=== PATIENT | female | born 2000 | race Two or more races ===

== ENCOUNTER 2024-06-03 09:42 | Observation (INO) | payer OTHER ==
[2024-06-03] MEDS ORDERED: PREN-96 PO ×2 (10:16)
== END 2024-06-03 11:53 | disposition home or self-care (01) ==
LOC: LDRP 09:42
PROVIDERS: ADMIT Obstetrics & Gynecology; ATTEND Obstetrics & Gynecology
DX: O69.81X0 Labor and delivery complicated by cord around neck, without compression, not applicable or unspecified (principal); Z3A.38 38 weeks gestation of pregnancy
CPT/HCPCS: 59025; 76818; 81002; 94760; G0378

== ENCOUNTER 2024-06-05 08:52 | Observation (INO) | payer OTHER ==
[~2024-06-05 08:52] MED LIST: PREN-96 PO
== END 2024-06-05 11:02 | disposition home or self-care (01) ==
LOC: LDRP 08:52
PROVIDERS: ADMIT Obstetrics & Gynecology; ATTEND Obstetrics & Gynecology
DX: O42.913 Preterm premature rupture of membranes, unspecified as to length of time between rupture and onset of labor, third trimester (principal); O69.81X0 Labor and delivery complicated by cord around neck, without compression, not applicable or unspecified; Z3A.39 39 weeks gestation of pregnancy; Z79.899 Other long term (current) drug therapy
CPT/HCPCS: 59025; 76818; 81002; G0378

== ENCOUNTER 2024-06-14 13:57 | Observation (INO) | payer OTHER | END 2024-06-14 16:15 | disposition home or self-care (01) | LOC: UNDOADMOB 13:57 → LDRP 13:57 → UNDODISOB 16:15 | PROVIDERS: ADMIT Obstetrics & Gynecology; ATTEND Obstetrics & Gynecology | DX: O48.0 Post-term pregnancy (principal); Z3A.40 40 weeks gestation of pregnancy; Z79.899 Other long term (current) drug therapy | CPT/HCPCS: 59025; 76818; 81002; 94762; G0378 ==

== ENCOUNTER 2024-06-15 05:48 | Inpatient (IN) | payer OTHER ==
[~2024-06-15] VITALS: Ht 157.5 cm; Wt 92.1 kg
[2024-06-15] MEDS ORDERED: LIDOCAINE 2%HCL (LOCAL ANESTH.) INJ 20ML MDV IJ PRN (07:15)
[2024-06-15] MEDS ORDERED: miSOPROStol 50 MCG per PRE-CUT 1/2 TAB PO PRN (07:15)
[2024-06-15 07:45] LABS: Basophils # (auto) 0 10 ^3/uL (0-0.2); Basophils % (auto) 0.5 % (0.0-2.0); Eosinophils # (auto) 0.4 10 ^3/uL (0-0.8); Eosinophils % (auto) 3.6 % (0.0-7.0); Hematocrit 37.2 % (36.0-46.0); Hemoglobin 13.3 g/dL (12.2-16.2); Lymphocytes # (auto) 2.4 10 ^3/uL (0.4-5.4); Lymphocytes % (auto) 23.2 % (10.0-50.0); Mean Corpuscular Hemoglobin 29.9 pg (28.0-32.0); Mean Corpuscular Hgb Conc. 35.7 g/dL (32.0-36.0); Mean Corpuscular Volume 83.9 fL (80.0-100.0); Monocytes # (auto) 0.8 10 ^3/uL (0-1.3); Monocytes % (auto) 7.8 % (0.0-12.0); Neutrophils # (auto) 6.6 10 ^3/uL (1.6-8.6); Neutrophils % (auto) 64.9 % (37.0-80.0); Nucleated Red Blood Cells % 0.2 %; Platelet Count (auto) 246 10^3/uL (140-450); Red Blood Cells 4.44 10^6/uL (4.0-5.20); Red Cell Distribution Width 13.8 % (11.8-14.3); White Blood Cell 10.2 10^3/uL (4.4-10.8)
[2024-06-15 08:03] LABS: INR 0.97 (0.9-1.15); Partial Thromboplastin Time 26.2 SEC (24.5-34.5); Prothrombin Time 10.3 sec (9.3-11.8)
[2024-06-15 08:09] LABS: Urine Bacteria FEW /hpf (None Seen); Urine Blood 2+ /uL (Negative); Urine Clarity Clear (Clear); Urine Color Colorless (Yellow); Urine Protein, UAD Negative (Negative); Urine Specific Gravity 1.006 (1.001-1.035); Urine Urobilinogen Normal (Negative); Urine WBC 21 /hpf (0 - 5); Urine pH 6.5 (5.0-9.0)
[2024-06-15] MEDS ORDERED: LACTATED RINGER'S 1,000 ML IV SCH (08:15)
[2024-06-15] MEDS ORDERED: TERBUTALINE SULFATE 1 MG/ML 1ML VIAL SC PRN (08:15)
[2024-06-15 08:20] LABS: Amphetamine Screen, Urine Neg (NEGATIVE)
[2024-06-15 08:20] LABS: Alanine Aminotransferase 12 U/L (7-40); Alkaline Phosphatase 142 U/L (46-116); Anion Gap 10 (5-15); Aspartate Aminotransferase 16 U/L (13-40); BUN/Creatinine Ratio 12.3 (10.0-20.0); Bilirubin, Total 0.3 mg/dL (0.2-1.0); Blood Urea Nitrogen 8 mg/dL (9-23); Calcium 10.2 mg/dL (8.7-10.4); Carbon Dioxide 22 mmol/L (20-30); Chloride 105 mmol/L (98-107); Glucose 91 mg/dL (74-106); Potassium 3.8 mmol/L (3.5-5.1); Sodium 137 mmol/L (136-145); Total Protein 6.7 g/dL (5.7-8.2)
[2024-06-15 08:21] LABS: Benzodiazephine Screen, Urine Neg (NEGATIVE)
[2024-06-15 08:22] LABS: Barbiturate Scree,Urine Neg (NEGATIVE); Cannabinoid Screen, Urine Neg (NEGATIVE); Cocaine Screen, Urine Neg (NEGATIVE); Opiate Scree,Urine Neg (NEGATIVE); Phencyclidine Screen, Urine Neg (NEGATIVE)
[2024-06-15] MEDS: LACTATED RINGER'S 1,000 ML IV SCH (08:35)
[2024-06-15] MEDS: DERMOPLAST 60ML BOTTLE TOP PRN (08:36)
[2024-06-15] MEDS: WITCH HAZEL-GLYCERIN PAD TOP PRN (08:36)
[2024-06-15] MEDS: PHISODERM TOP SOLN 240ML BTL TOP PRN (08:36)
[2024-06-15] MEDS: LACT. RINGERS/OXYTOCIN 20UNITS 1,000 ML IV SCH (08:55)
[2024-06-15] MEDS ORDERED: ePHEDrine SULFATE 50 MG/ML AMP IV ONE (12:15)
[2024-06-15] MEDS ORDERED: NALOXONE HCL 0.4 MG/ML VIAL IV ONE (12:15)
[2024-06-15] MEDS: fentaNYL CITRATE 100 MCG/2 ML VL ONE (12:52)
[2024-06-15] MEDS: fentaNYL CITRATE 100 MCG/2 ML VL IV ONE (12:52)
[2024-06-15] MEDS: ROPIVACAINE HCL 200 ML ONE (12:53)
[2024-06-15] MEDS ORDERED: miSOPROStol 100 mcg TAB SL PRN (22:45)
[2024-06-15] MEDS ORDERED: CARBOPROST TROMETHAMINE 250 MCG/1ML VIAL IM PRN (22:45)
[2024-06-15] MEDS ORDERED: miSOPROStol 100 mcg TAB PR PRN (22:45)
[2024-06-15] MEDS ORDERED: METHYLERGONOVINE MALEATE 0.2 MG/ML AMP IM PRN (22:45)
[2024-06-15] MEDS ORDERED: ONDANSETRON HCL 4 MG/2 ML VIAL IV PRN (22:45)
[2024-06-15] MEDS: MINERAL OIL TOPICAL 10ml TOP ONE (22:45)
[2024-06-15] MEDS ORDERED: GENTAMICIN PER PHARMACY 0 ML IV SCH (23:20)
[2024-06-15] MEDS: ACETAMINOPHEN 500 MG TAB PO ONE (23:25)
[2024-06-15] MEDS: LACT. RINGERS/OXYTOCIN 20UNITS 500 ML IV ONE (23:49)
[2024-06-15] MEDS: TRANEXAMIC ACID 1,000 MG in SODIUM CHL 0.9% 100 ML IV ONE (23:52)
[2024-06-16] MEDS ORDERED: AMPICILLIN SOD 2GM INJ 2 GM in SODIUM CHL 0.9% 100 ML IV SCH
[2024-06-16] MEDS ORDERED: LACT. RINGERS/OXYTOCIN 20UNITS 500 ML IV ONE
[2024-06-16] MEDS ORDERED: AMPICILLIN SOD 1 GM VL ONE (00:27)
[2024-06-16] MEDS: AMPICILLIN SOD 2GM INJ 2 GM in SODIUM CHL 0.9% 100 ML IV SCH (01:00)
[2024-06-16] MEDS ORDERED: IBUPROFEN 600 MG TAB PO PRN (01:30)
[2024-06-16] MEDS ORDERED: GENTAMICIN SULFATE 0 ML ONE (01:35)
[2024-06-16] MEDS ORDERED: ONDANSETRON ODT 4 MG TAB PO PRN (02:30)
[2024-06-16] MEDS: GENTAMICIN SULFATE IV ONE (02:35)
[2024-06-16] MEDS: D5W 5% IV ONE (02:35)
[2024-06-16 03:00] VITALS: BP 130/80; PULSE 98; RESP 16; TEMP 98.4; O2SAT 98
[2024-06-16] MEDS: DOCUSATE SOD 100 MG CAP PO SCH ×2 (03:02→21:53)
[2024-06-16] MEDS: IBUPROFEN 800 MG TAB PO SCH (04:20)
[2024-06-16 06:06] LABS: RPR Non Reactive (Non Reactive)
[2024-06-16 06:42] LABS: Basophils # (auto) 0 10 ^3/uL (0-0.2); Basophils % (auto) 0.1 % (0.0-2.0); Eosinophils # (auto) 0 10 ^3/uL (0-0.8); Eosinophils % (auto) 0.1 % (0.0-7.0); Hematocrit 30.9 % (36.0-46.0); Hemoglobin 10.9 g/dL (12.2-16.2); Lymphocytes # (auto) 1.6 10 ^3/uL (0.4-5.4); Lymphocytes % (auto) 8.4 % (10.0-50.0); Mean Corpuscular Hemoglobin 29.8 pg (28.0-32.0); Mean Corpuscular Hgb Conc. 35.4 g/dL (32.0-36.0); Mean Corpuscular Volume 84.2 fL (80.0-100.0); Monocytes # (auto) 1.6 10 ^3/uL (0-1.3); Monocytes % (auto) 8.6 % (0.0-12.0); Neutrophils # (auto) 15.5 10 ^3/uL (1.6-8.6); Neutrophils % (auto) 82.8 % (37.0-80.0); Nucleated Red Blood Cells % 0.1 %; Platelet Count (auto) 222 10^3/uL (140-450); Red Blood Cells 3.67 10^6/uL (4.0-5.20); Red Cell Distribution Width 13.8 % (11.8-14.3); White Blood Cell 18.7 10^3/uL (4.4-10.8)
[2024-06-16 06:45] VITALS: BP 123/60; PULSE 87; RESP 18; TEMP 98.6; O2SAT 98
[2024-06-16] MEDS: ACETAMINOPHEN 325 MG TAB PO PRN ×2 (08:15→15:18)
[2024-06-16] MEDS ORDERED: DIPHENOXYLATE W/ATROPINE 2.5 MG TAB PO SCH (10:00)
[2024-06-16] MEDS: PRENATAL VITAMIN TAB PO SCH (10:09)
[2024-06-16 11:30] VITALS: BP 124/76; PULSE 94; RESP 18; TEMP 98.9; O2SAT 100
[2024-06-16 15:00] VITALS: BP 126/78; PULSE 90; RESP 18; TEMP 98.7; O2SAT 100
[2024-06-16 19:30] VITALS: BP 122/83; PULSE 90; RESP 16; TEMP 98.6; O2SAT 99
[2024-06-16 23:30] VITALS: BP 124/75; PULSE 96; RESP 16; TEMP 98.1; O2SAT 99
[2024-06-17] MEDS: GENTAMICIN SULFATE 360 MG in D5W 5% 100 ML IV SCH (01:30)
[2024-06-17] MEDS ORDERED: DOCU-265 PO (01:58)
[2024-06-17] MEDS ORDERED: FER325T PO (01:58)
[2024-06-17] MEDS ORDERED: ASCO500T11 PO (01:58)
[2024-06-17] MEDS ORDERED: IBUP-1455 PO (01:58)
[2024-06-17 03:00] VITALS: BP 108/71; PULSE 83; RESP 16; TEMP 98.6; O2SAT 100
[2024-06-17 06:30] VITALS: BP 125/71; PULSE 71; RESP 16; TEMP 99.1; O2SAT 98
[2024-06-17 10:37] VITALS: BP 123/74; PULSE 98; RESP 15; TEMP 99; O2SAT 97
== END 2024-06-17 13:00 | disposition home or self-care (01) | DRG 768 ==
LOC: LDRP 06:55
PROVIDERS: ADMIT Obstetrics & Gynecology; ATTEND Obstetrics & Gynecology
PROC: 10E0XZZ Delivery of Products of Conception, External Approach (ICD-10-PCS; principal; 2024-06-15)
PROC: 0TQDXZZ Repair Urethra, External Approach (ICD-10-PCS; 2024-06-15)
PROC: 0KQM0ZZ Repair Perineum Muscle, Open Approach (ICD-10-PCS; 2024-06-15)
PROC: 0UQMXZZ Repair Vulva, External Approach (ICD-10-PCS; 2024-06-15)
PROC: 3E0R3BZ Introduction of Anesthetic Agent into Spinal Canal, Percutaneous Approach (ICD-10-PCS; 2024-06-15)
PROC: 00HU33Z Insertion of Infusion Device into Spinal Canal, Percutaneous Approach (ICD-10-PCS; 2024-06-15)
PROC: 3E033VJ Introduction of Other Hormone into Peripheral Vein, Percutaneous Approach (ICD-10-PCS; 2024-06-15)
DX: O48.0 Post-term pregnancy (principal); Z37.0 Single live birth; O41.1230 Chorioamnionitis, third trimester, not applicable or unspecified; O69.81X0 Labor and delivery complicated by cord around neck, without compression, not applicable or unspecified; O70.1 Second degree perineal laceration during delivery; O71.82 Other specified trauma to perineum and vulva; Z3A.40 40 weeks gestation of pregnancy
CPT/HCPCS: 36415; 59409; 62282; 80053; 80170; 80307; 81001; 81002; 85025; 85610; 85730; 86592; 86780; 86803; 86850; 86900; 86901; 94760; 94762; 96360; 96361; 96365; 96366; G0378; J2590; J7060

== ENCOUNTER 2024-06-24 19:59 | Emergency (ER) | payer OTHER ==
[~2024-06-24] VITALS: Ht 157.5 cm; Wt 92.2 kg
[~2024-06-24 19:59] MED LIST changes: +ASCO500T11 PO; +DOCU-265 PO; +FER325T PO; +IBUP-1455 PO
[2024-06-24 20:41] LABS: Urine Bacteria None Seen /hpf (None Seen)
[2024-06-24 21:17] LABS: Basophils # (auto) 0.1 10 ^3/uL (0-0.2); Basophils % (auto) 0.8 % (0.0-2.0); Eosinophils # (auto) 0.3 10 ^3/uL (0-0.8); Eosinophils % (auto) 3.5 % (0.0-7.0); Hematocrit 37.6 % (36.0-46.0); Lymphocytes # (auto) 2.8 10 ^3/uL (0.4-5.4); Lymphocytes % (auto) 27.8 % (10.0-50.0); Mean Corpuscular Hemoglobin 29.2 pg (28.0-32.0); Mean Corpuscular Hgb Conc. 34.7 g/dL (32.0-36.0); Mean Corpuscular Volume 84.3 fL (80.0-100.0); Monocytes # (auto) 0.7 10 ^3/uL (0-1.3); Monocytes % (auto) 7.5 % (0.0-12.0); Neutrophils % (auto) 60.4 % (37.0-80.0); Platelet Count (auto) 512 10^3/uL (140-450); Red Blood Cells 4.46 10^6/uL (4.0-5.20); Red Cell Distribution Width 13.7 % (11.8-14.3); White Blood Cell 9.9 10^3/uL (4.4-10.8)
[2024-06-24 21:28] LABS: Chloride 103 mmol/L (98-107); Sodium 137 mmol/L (136-145)
[2024-06-24 21:29] LABS: Anion Gap 7 (5-15); Carbon Dioxide 27 mmol/L (20-31)
[2024-06-24 21:30] LABS: Calcium 10.1 mg/dL (8.7-10.4)
[2024-06-24 21:32] LABS: Urine Blood 3+ /uL (Negative); Urine Clarity Ex.Turbid (Clear); Urine Color Light-Red (Yellow); Urine Protein, UAD 2+ (Negative); Urine Specific Gravity 1.011 (1.001-1.035); Urine Urobilinogen Normal (Negative); Urine WBC 722 /hpf (0 - 5); Urine WBC Clumps PRESENT /hpf (None Seen); Urine pH 5.5 (5.0-9.0)
[2024-06-24 21:34] LABS: INR 1.09 (0.9-1.15); Partial Thromboplastin Time 27.3 SEC (24.5-34.5); Prothrombin Time 11.5 sec (9.3-11.8)
[2024-06-24 21:35] LABS: BUN/Creatinine Ratio 16.3 (10.0-20.0); Blood Urea Nitrogen 13 mg/dL (9-23); Glucose 88 mg/dL (74-106)
[2024-06-24] MEDS ORDERED: ACET-1304 PO (22:55)
[2024-06-24] MEDS ORDERED: CEPH500C PO (22:55)
[2024-06-24 23:22] VITALS: BP 123/80; PULSE 85; RESP 16; O2SAT 96
[2024-06-24] MEDS: hydrALAZINE HCL 20 MG/ML VL IV ONE (23:22)
[2024-06-24 23:27] VITALS: TEMP 98.1
[2024-06-24] MEDS: ACETAMINOPHEN 500 MG TAB PO ONE (23:27)
[2024-06-24] MEDS: cefTRIAXone 1GM/50ML D5W 50 ML IV ONE (23:42)
== END 2024-06-24 23:49 | disposition home or self-care (01) ==
LOC: ER 19:59
DX: N39.0 Urinary tract infection, site not specified (principal); R10.2 Pelvic and perineal pain; I10 Essential (primary) hypertension
CPT/HCPCS: 36415; 76856; 80048; 81001; 84702; 85025; 85610; 85730; 96374; 99285; J0696